=== PATIENT | female | born 1980 | race Caucasian/White ===

== ENCOUNTER 2025-05-31 20:50 | Emergency (ER) | payer BC, OTHER ==
[2025-05-31] MEDS: Diphtheria,Pertussis(Acell),Tetanus Vaccine 0.5 ML Syringe IM ONE (21:23)
[2025-06-01] MEDS: Iopamidol 755 Mg/ML 100 ML Bottle IV ONE ×2 (00:51→00:53)
== END 2025-06-01 01:54 | disposition home or self-care (01) ==
LOC: KA.ED 20:50
DX: S12.000A Unspecified displaced fracture of first cervical vertebra, initial encounter for closed fracture (principal); Z79.899 Other long term (current) drug therapy; W19.XXXA Unspecified fall, initial encounter; Z23 Encounter for immunization
CPT/HCPCS: 70498; 72125; 90471; 90715; 99283-25; 99284; Q9967